=== PATIENT | female | born 1960 | race Caucasian/White ===

== ENCOUNTER → 2023-09-03 09:57 | Outpatient (REF) | payer BC, SELFPAY | LOC: HWWDC 09:57 | PROVIDERS: ATTENDING PHYSICIAN Obstetrics & Gynecology; FAMILY PHYSICIAN Physician Assistant Medical | DX: Z12.31 Encounter for screening mammogram for malignant neoplasm of breast (principal) | CPT/HCPCS: 77063; 77067 ==

== ENCOUNTER → 2024-09-08 11:02 | Outpatient (REF) | payer BC, SELFPAY | LOC: HWWDC 11:02 | PROVIDERS: ATTENDING PHYSICIAN Obstetrics & Gynecology; FAMILY PHYSICIAN Family Medicine | DX: Z12.31 Encounter for screening mammogram for malignant neoplasm of breast (principal) | CPT/HCPCS: 77063; 77067 ==

== ENCOUNTER 2024-10-12 12:36 | Emergency (ER) | payer BC, SELFPAY ==
[2024-10-12 13:12] LABS: % Basophils 0.3 % (0-2); % Eosinophils 1.3 % (0-6); % Immature Granulocytes 0.2 % (0-0.5); % Lymphocytes 21.6 % (20.5-51.1); % Monocytes 6.5 % (1.7-9.3); % Neutrophils 70.1 % (42.2-75.2); Absolute Eosinophils 0.1 10^3/uL (0-0.7); Absolute Lymphocytes 2.2 10^3/uL (1.2-3.4); Absolute Monocytes 0.7 10^3/uL (0.1-0.6); Absolute Neutrophils 7.1 10^3/uL (1.4-6.5); Hematocrit 41.9 % (37.0-47.0); Hemoglobin 13.8 g/dL (12.0-16.0); Mean Corp Hgb Conc. 32.9 g/dL (33.0-37.0); Mean Platelet Volume 9.9 fL (7.4-10.4); Nucleated Red Blood Cells % 0 %; Platelet Count 302 10^3/uL (130-400); Red Blood Cell Count 4.76 10^6/uL (4.20-5.40); Red Cell Dist. Width 12.4 % (11.5-14.5); White Blood Cell Count 10.1 10^3/uL (4.8-10.8)
[2024-10-12 13:20] LABS: ALT (SGPT) 20 U/L (0-35); AST (SGOT) 27 U/L (14-36); Albumin 4.7 g/dl (3.5-5.0); Alkaline Phosphatase 76 U/L (38-126); Blood Urea Nitrogen 12 mg/dl (7-17); Calcium 9.9 mg/dl (8.4-10.2); Carbon Dioxide 30 mmol/L (22-30); Chloride 108 mmol/L (98-107); Glucose 101 mg/dl (70-99); Lipase 258 U/L (23-300); Potassium 4.7 mmol/L (3.5-5.1); Sodium 142 mmol/L (135-145); Total Bilirubin 0.6 mg/dl (0.2-1.3); Total Protein 7.8 g/dl (6.3-8.2); Urine Albumin Negative (Neg - Trace); Urine Bilirubin Negative (Negative); Urine Character Clear (Clear); Urine Color Yellow; Urine Glucose Negative (Negative); Urine Ketone Negative (Negative); Urine Leukocyte Negative (Negative); Urine Nitrite Negative (Negative); Urine Occult Blood Negative (Negative); Urine Urobilinogen Negative (Neg - 1+); eGFR > 60.00
[2024-10-12 13:27] VITALS: BP 116/74
[2024-10-12 13:28] VITALS: BP 116/74
[2024-10-12 14:00] VITALS: BP 112/62
--- NOTE | 2024-10-12 14:27 | ED.GENMED ---
History of Present Illness
General
Chief Complaint: Abdominal Pain
Source: patient
Exam Limitations: none
Time Seen by Provider: 10/12/24 13:56
History of Present Illness
History of Present Illness:
64yoF with a history of migraines and chronic constipation presenting with her for evaluation of abdominal pain. Symptoms began 6 days ago. She reports a sharp pain in her LUQ that began while she was in the car. The pain has been
gradually worsening since then. Pain is worse with movement and started to radiate to the left flank more recently. She denies any trauma or inciting incident. She has tried ibuprofen without any improvement. Patient saw her PCP this morning and
was sent to the ED for evaluation. She denies any fevers, vomiting, diarrhea, chest pain, shortness of breath. Only previous abdominal surgery was a section. Last colonoscopy was about 4 years ago which was reportedly normal.
Phy Exam
General Physical Exam
General Presentation: well appearing and no apparent distress
General Skin: warm and dry
General Habitus: normal
General Mental: alert
ENT Exam
ENT Exam: normocephalic
Cardiovascular Exam
Cardiovascular Exam: regular rate/rhythm
Pulmonary Exam
Pulmonary Exam: lungs clear, no respiratory distress, no rales, no crackles, no rhonchi and no wheezing
Gastrointestinal Exam
Gastrointestinal Exam: soft, non distended and other (+Tenderness in LUQ and LLQ. +Tenderness to L thoracic region. No skin changes or rash. )
Neurological Exam
Neurological Exam: alert
Holcomb Coma Scale
Eye Opening: Spontaneous
Verbal Response: Oriented
Motor Response: Obeys Commands
GCS Total Score: 15
Skin Exam
Skin Exam: normal color and warm/dry
Psychiatric Exam
Psychiatric Exam: normal mood/affect
Course
Orders/Labs/Results
Orders:
Orders
10/12/24 12:50
Complete Blood Count/With Diff Urgent
Comprehensive Metabolic Panel Urgent
Lipase Urgent
Urinalysis Reflex To Culture Urgent
Date Specimen was Collected: 10/12/24
Time Specimen was Collected: 12:46
10/12/24 14:30
CT Abd/pelvis W Iv Cont Urgent
Comment:
Reason For Exam: LUQ/LLQ pain radiating to L flank
Abnormal Lab Results
10/12/24
12:50
MCHC 32.9 L g/dL
(33.0-37.0)
Absolute Neuts (auto) 7.1 H 10^3/uL
(1.4-6.5)
Absolute Monos (auto) 0.7 H 10^3/uL
(0.1-0.6)
Chloride 108 H mmol/L
(98-107)
Glucose 101 H mg/dl
(70-99)
10/12/24 12:50
10/12/24 12:50
Vital Signs
Initial and Last Documented VS:
Initial Vital Signs
BP
116/74
10/12/24 13:27
Last Documented Vital Signs
Temp Pulse Resp BP Pulse Ox
97.8 F 91 29 112/70 97
10/12/24 13:28 10/12/24 17:15 10/12/24 17:15 10/12/24 17:00 10/12/24 17:00
MDM/Problems Addressed
Differential Diagnosis Includes:
64yoF here with LUQ pain x 1 week. Radiates to L flank. Worse with movement. Sent here by PCP. VSS. She is well appearing in no distress. No signs of peritonitis on abdominal exam. Differential diagnosis includes but is not limited to:
Musculoskeletal, kidney stone, diverticulitis, colitis, no evidence of shingles on exam
Initial ED plan: Check abdominal labs, UA, and CT abdomen.
*Pulse Oximetry
SaO2: 99
Oxygen Mode of Delivery: Room air
Patient hypoxic: no (98%)
*Critical Care Note
Total Time (30-74mins, 75-104mins- exclusive of procedures): Not Applicable
Update Note
Update Note:
Labs overall unremarkable including normal white count and renal function. UA bland without hematuria or infection. CT abdomen is negative for acute findings. Unclear etiology of symptoms, suspect musculoskeletal. Supportive care discussed.
Advised follow-up with PCP. Patient discharged in stable condition.
ED Attending Note
-
Portions of this chart may have been created with voice recognition software.� Occasional wrong word or��sound alike� substitutions may have occurred due to the inherent limitations of voice recognition software.
Discharge Plan
Departure
Patient Disposition: Home (Routine Discharge)
Date of Disposition: 10/12/24
Time of Disposition: 20:10
Patient with high blood pressure during this ER visit?: No
Discharge Problem:
Left upper quadrant abdominal pain
Instructions: Abdominal Pain
Referrals:
Tawanna Winn PA-C [Family Provider, Family Practice]
Activity Restrictions/Additional Instructions:
Apply heat to affected area. Take Tylenol and ibuprofen as needed for pain. Use lidocaine patches daily (12 hours on, 12 hours off).
Please follow-up with your family doctor. Return to the ER with any new or worsening symptoms.
Interventions
Interventions:
*Risk Screen - Suicide Last Done: 10/12/24 12:42
*General Assessment Last Done: 10/12/24 14:41
*Neglect/Abuse Screening Last Done: 10/12/24 12:42
*ED- Fall Risk Assessment Last Done: 10/12/24 14:41
*ED COVID-19 Vaccine History Last Done: 10/12/24 14:41
*Nursing Disposition Last Done: 10/12/24 18:53
KB-Mcqzwl-Psdzgfppzx Assessment Last Done: 10/12/24 14:41
Discharge Date and Time
Discharge Date/Time: 10/12/24 18:56
Print Language: HUNGARIAN
[2024-10-12 14:28] VITALS: BMI 26.4
[2024-10-12 16:30] VITALS: BP 116/77
[2024-10-12 17:00] VITALS: BP 112/70
== END 2024-10-12 18:56 | disposition home or self-care (01) ==
LOC: EMR 12:36
PROVIDERS: Emergency Medicine; EMERGENCY PHYSICIAN Student in an Organized Health Care Education/Training Program; FAMILY PHYSICIAN Physician Assistant Medical
DX: R10.12 Left upper quadrant pain (principal)
CPT/HCPCS: 99284; 74177; 80053; 81003; 83690; 85025; Q9967